=== PATIENT | male | born 1980 | race Caucasian/White ===

== ENCOUNTER 2022-05-05 03:36 | Emergency (ER) | payer SELFPAY ==
--- NOTE | 2022-05-05 04:00 | NUR ---
Patient left without being seen. No further treatment provided. ER MD aware
== END 2022-05-05 04:00 | disposition left against medical advice (07) ==
LOC: SED 03:36
DX: R10.9 Unspecified abdominal pain (principal); Z53.21 Procedure and treatment not carried out due to patient leaving prior to being seen by health care provider

== ENCOUNTER 2022-05-10 21:14 | Inpatient (IN) | payer MEDICAID ==
[~2022-05-10] VITALS: Ht 180.3 cm; Wt 89.4 kg
[2022-05-10] MEDS ORDERED: MORPHINE 2 MG/ML INJ. SYRINGE IVP ONE (22:00)
[2022-05-10] MEDS ORDERED: NACL 0.9% 1,000 ML IV ONE (22:00)
[2022-05-10] MEDS ORDERED: ONDANSETRON HCL 4 MG/2 ML VIAL IVP ONE (22:00)
[2022-05-10] MEDS ORDERED: iohexoL 350 mgI/mL, 100 ML INFUS..BTL IV ONE (22:19)
[2022-05-10 22:36] LABS: BASOPHILS % (AUTO) 0.7 % (0.0-2.0); EOSINOPHILS # (AUTO) 0.1 K/uL (0.0-0.4); EOSINOPHILS % (AUTO) 1.4 % (0.0-4.0); HEMATOCRIT 43.7 % (36-54); LYMPHOCYTES # (AUTO) 1.6 K/uL (1.0-5.5); LYMPHOCYTES % (AUTO) 26.7 % (20.5-51.5); MEAN CORPUSCULAR HEMOGLOBIN 32 pg (27-31); MEAN CORPUSCULAR HGB CONC 34 % (32-36); MEAN CORPUSCULAR VOLUME 94 fL (79.0-98.0); MONOCYTES # (AUTO) 0.5 K/uL (0.0-1.0); MONOCYTES % (AUTO) 7.7 % (1.7-9.3); NEUTROPHILS # (AUTO) 3.8 K/uL (1.8-7.7); NEUTROPHILS % (AUTO) 63.5 % (40.0-70.0); PLATELET COUNT (AUTO) 227 K/uL (130-430); RED BLOOD CELL COUNT(AUTO) 4.65 MIL/uL (4.2-6.2); RED CELL DISTRIBUTION WIDTH 12.7 % (9.0-15.0); WHITE BLOOD COUNT (AUTO) 5.9 K/uL (4.8-10.8)
[2022-05-10 22:49] LABS: CALCIUM 9.9 mg/dL (8.4-11.0); CREATININE 1.09 mg/dL (0.55-1.30); POTASSIUM 3.7 mmol/L (3.5-5.1); TOTAL BILIRUBIN 2.5 mg/dL (0.0-1.0)
[2022-05-10 22:50] LABS: BILIRUBIN,URINE 2+ (NEGATIVE); COLOR,URINE ORANGE (YELLOW); GLUCOSE,URINE NEGATIVE (NEGATIVE); KETONES,URINE NEGATIVE (NEGATIVE); LEUKOCYTE ESTERASE ,URINE NEGATIVE (NEGATIVE); NITRITE, URINE NEGATIVE (NEGATIVE); PROTEIN URINE 1+ (NEGATIVE)
[2022-05-10 22:52] LABS: BLOOD, URINE TRACE (NEGATIVE)
[2022-05-10 22:53] LABS: CLARITY/URINE SLIGHTLY HAZY (CLEAR)
[2022-05-10 23:03] LABS: BACTERIA,URINE MODERATE /HPF (None Seen); RBC,URINE 0-3 /HPF (0-3); WBC,URINE 0-3 /HPF (0-3)
[2022-05-10 23:04] LABS: COARSE GRANULAR CASTS,URINE 0-10 /LPF (None Seen); MUCUS,URINE 2+ /LPF (None Seen)
[2022-05-10] MEDS ORDERED: cefTRIAXone 1 GM in D5W 50 ML IV ONE (23:15)
[2022-05-11] VITALS (7 sets, daily range): BP systolic 106–139
--- NOTE | 2022-05-11 02:13 | NUR ---
Placed in room 7 . Placed on monitor technician, blood pressure machine and pulse oximeter. To gown for exam. Side rails up. PT A&O X4, VERBAL, AMBULATORY, WITH C/O RUQ PAIN, NO SOB/ DISTRESS, PT STATED THAT HE WAS D/C FROM THE HOSPITAL LAST . & MD'S IN THE HOSPITAL WAS TELLING HIM HE HAS GALLSTONE BUT WAS D/C HOME.
[2022-05-11] MEDS ORDERED: MORPHINE 2 MG/ML INJ. SYRINGE ONE (02:53)
[2022-05-11] MEDS ORDERED: ONDANSETRON HCL 4 MG/2 ML VIAL ONE (02:54)
[2022-05-11] MEDS ORDERED: cefTRIAXone 1 GM VIAL ONE (02:55)
[2022-05-11] MEDS ORDERED: HYDROcodone/ACETAMIN 10-325 MG TAB PO PRN ×2 (03:00→11:00)
[2022-05-11] MEDS ORDERED: HYDROcodone/ACETAMIN 5-325 MG TAB (NORCO/ VICODIN) PO PRN ×2 (03:00→11:00)
--- NOTE | 2022-05-11 05:51 | NUR ---
GAVE REPORT TO BRUNO/DANNY ON THE PHONE.
--- NOTE | 2022-05-11 05:54 | NUR ---
Consultation Paged Reason for Consultation: Bile Duct Obstruction Was consult called: Y Person who was notified: Sol Consulting Physician: Dr. 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
--- NOTE | 2022-05-11 05:57 | NUR ---
TRANSFER PT TO RM 129B VIA W/C, PT A&O X4, VERBAL, AMBULATORY, NO SOB/ DISTRESS, NO C/O PAIN AT THIS TIME. IV PERIPHERAL LINE INTACT ON THE RT FA, FROILAN.
--- NOTE | 2022-05-11 06:03 | NUR ---
Consultation Paged Reason for Consultation: Bile Duct Obstruction Was consult called: Y Person who was notified: [place] Consulting Physician: Yoshi Bhatti Ordering Physician: Josiah Dobbins
[2022-05-11] MEDS ORDERED: NALOXONE HCL 0.4 MG/ML AMP (NARCAN) IVP PRN ×2 (11:00)
[2022-05-11] MEDS ORDERED: LORazepam 2 MG/ML VIAL IVP PRN (11:00)
[2022-05-11] MEDS ORDERED: ACETAMINOPHEN 325 MG TABLET PO PRN (11:00)
[2022-05-11] MEDS ORDERED: ONDANSETRON HCL 4 MG/2 ML VIAL IVP PRN (11:00)
--- NOTE | 2022-05-11 19:30 | NUR ---
Opening note Received report from day shift. Pt is awake resting in bed, a/o x4. Breathing even and unlabored on RA. IV site intact and patent saline lock. Fall and safety precautions in place with bed in lowest position and call light within reach
[2022-05-11] MEDS: cefTRIAXone 1 GM IVPB PREMIX 50 ML IV SCH (20:55)
[2022-05-11 23:48] LABS: BARBITURATE, URINE NEGATIVE (NEG <=200); BENZODIAZEPINE, URINE NEGATIVE (NEG <=150); CANNABINOID, URINE POSITIVE (NEG <=50); COCAINE, URINE NEGATIVE (NEG <=150); METHAMPHETAMINES SCREEN,URINE NEGATIVE (NEG <=500); OPIATE, URINE POSITIVE (NEG <=100); PHENCYCLIDINE SCREEN,URINE NEGATIVE (NEG <=25); UR TRICYCLIC ANTIDEPRESSANTS NEGATIVE (NEG <=300); URINE AMPHETAMINE NEGATIVE (NEG <=500); URINE METHADONE NEGATIVE (NEG <=200); URINE OXYCODONE SCREEN NEGATIVE (NEG <=100); URINE PROPOXYPHENE SCREEN NEGATIVE (NEG <=300)
[2022-05-12] VITALS: BP_SYST 108
--- NOTE | 2022-05-12 | NUR ---
Pt now NPO for MRCP in the AM
--- NOTE | 2022-05-12 02:27 | NUR ---
Rounds Pt lying in bed, eyes closed. Breathing even and unlabored. No s/s of acute distress
[2022-05-12 06:44] LABS: BASOPHILS % (AUTO) 0.7 % (0.0-2.0); EOSINOPHILS # (AUTO) 0.1 K/uL (0.0-0.4); EOSINOPHILS % (AUTO) 4.1 % (0.0-4.0); HEMATOCRIT 41.6 % (36-54); HEMOGLOBIN 14.2 g/dL (14.0-18.0); LYMPHOCYTES # (AUTO) 1.6 K/uL (1.0-5.5); LYMPHOCYTES % (AUTO) 46.4 % (20.5-51.5); MEAN CORPUSCULAR HEMOGLOBIN 32 pg (27-31); MEAN CORPUSCULAR HGB CONC 34 % (32-36); MEAN CORPUSCULAR VOLUME 95 fL (79.0-98.0); MONOCYTES # (AUTO) 0.3 K/uL (0.0-1.0); MONOCYTES % (AUTO) 8.5 % (1.7-9.3); NEUTROPHILS # (AUTO) 1.4 K/uL (1.8-7.7); NEUTROPHILS % (AUTO) 40.3 % (40.0-70.0); PLATELET COUNT (AUTO) 205 K/uL (130-430); RED CELL DISTRIBUTION WIDTH 12.9 % (9.0-15.0); WHITE BLOOD COUNT (AUTO) 3.5 K/uL (4.8-10.8)
--- NOTE | 2022-05-12 07:06 | NUR ---
Closing note Pt is lying in bed, eyes closed. Breathing even and unlabored on RA. IV site intact and patent saline lock. Remains NPO for MRCP today. Fall and safety precautions in place with bed in lowest position and call light within reach. All needs met throughout shift.
[2022-05-12 08:00] VITALS: BP_SYST 130
[2022-05-12 09:36] LABS: ALANINE AMINOTRANSFERASE 774 U/L (12-78); ALBUMIN 3.3 g/dL (3.4-4.8); ANION GAP 7 (5-15); ASPARTATE AMINOTRANSFERASE 283 U/L (10-37); CALCIUM 8.6 mg/dL (8.4-11.0); CHLORIDE 107 mmol/L (98-107); CREATININE 1.05 mg/dL (0.55-1.30); GLUCOSE 91 mg/dL (70-99); SODIUM SERUM 144 mmol/L (136-145); TOTAL BILIRUBIN 1.4 mg/dL (0.0-1.0); UREA NITROGEN, BLOOD 11 mg/dL (8-21)
[2022-05-12 09:53] LABS: GFR AFRICAN AMERICAN 100 mL/min (>90)
[2022-05-12 10:25] LABS: C-REACTIVE PROTEIN QUANT < 0.2 mg/dL (0-0.5)
[2022-05-12] MEDS ORDERED: LORazepam 2 MG/ML VIAL IVP PRN (12:30)
[2022-05-12] MEDS ORDERED: ACETAMINOPHEN 325 MG TABLET PO PRN (12:30)
[2022-05-12] MEDS ORDERED: NALOXONE HCL 0.4 MG/ML AMP (NARCAN) IVP PRN ×2 (12:30)
[2022-05-12] MEDS ORDERED: HYDROcodone/ACETAMIN 5-325 MG TAB (NORCO/ VICODIN) PO PRN (12:30)
[2022-05-12] MEDS ORDERED: ONDANSETRON HCL 4 MG/2 ML VIAL IVP PRN (12:30)
[2022-05-12] MEDS ORDERED: HYDROcodone/ACETAMIN 10-325 MG TAB PO PRN (12:30)
[2022-05-12 12:45] LABS: ERYTHROCYTE SEDIMENTATION RATE 6 MM/HR (0-15)
[2022-05-12 16:00] VITALS: BP_SYST 158
[2022-05-12] MEDS: cefTRIAXone 1 GM IVPB PREMIX 50 ML IV SCH (22:23)
[2022-05-13 07:37] LABS: ALBUMIN 3.2 g/dL (3.4-4.8); BASOPHILS % (AUTO) 0.4 % (0.0-2.0); CALCIUM 8.7 mg/dL (8.4-11.0); CREATININE 0.97 mg/dL (0.55-1.30); EOSINOPHILS # (AUTO) 0.1 K/uL (0.0-0.4); EOSINOPHILS % (AUTO) 2.8 % (0.0-4.0); HEMATOCRIT 41.5 % (36-54); HEMOGLOBIN 14.2 g/dL (14.0-18.0); LYMPHOCYTES # (AUTO) 1.8 K/uL (1.0-5.5); LYMPHOCYTES % (AUTO) 43.7 % (20.5-51.5); MEAN CORPUSCULAR HEMOGLOBIN 32 pg (27-31); MEAN CORPUSCULAR HGB CONC 34 % (32-36); MEAN CORPUSCULAR VOLUME 95 fL (79.0-98.0); MONOCYTES # (AUTO) 0.3 K/uL (0.0-1.0); MONOCYTES % (AUTO) 7.2 % (1.7-9.3); NEUTROPHILS # (AUTO) 1.9 K/uL (1.8-7.7); NEUTROPHILS % (AUTO) 45.9 % (40.0-70.0); PLATELET COUNT (AUTO) 225 K/uL (130-430); POTASSIUM 3.7 mmol/L (3.5-5.1); RED CELL DISTRIBUTION WIDTH 12.7 % (9.0-15.0); TOTAL BILIRUBIN 0.8 mg/dL (0.0-1.0)
[2022-05-13 09:07] LABS: HEPATITIS A AB, IgM Negative (Negative); HEPATITIS B CORE AB, IgM Negative (Negative); HEPATITIS B SURFACE AG Negative (Negative)
[2022-05-13] MEDS ORDERED: NS IRRIG SOLN 1000 ML IR ONE (14:09)
[2022-05-13] MEDS ORDERED: DEXAMETHASONE SOD PHOSPHATE 4 MG/ML VIAL ONE (14:09)
[2022-05-13] MEDS ORDERED: BUPIVACAINE /EPINEPHRINE/PF 0.5% 30 ML VIAL INJ ONE (14:09)
[2022-05-13] MEDS ORDERED: GLYCOPYRROLATE 0.2 MG/ML VIAL ONE (14:09)
[2022-05-13] MEDS ORDERED: PROPOFOL 200MG/ 20ML VIAL (DIPRIVAN) IV ONE (14:09)
[2022-05-13] MEDS ORDERED: CEFAZOLIN 2 GM IVPB PREMIX 50 ML IV ONE (14:09)
[2022-05-13] MEDS ORDERED: ePHEDrine sulfate 50 MG/ML VIAL ONE (14:09)
[2022-05-13] MEDS ORDERED: ROCURONIUM BROMIDE 10 MG/ML (ZEMURON) ONE (14:09)
[2022-05-13] MEDS ORDERED: ONDANSETRON HCL 4 MG/2 ML VIAL ONE (14:09)
[2022-05-13] MEDS ORDERED: KETOROLAC TROMETHAMINE 30 MG VIAL ONE (14:09)
[2022-05-13] MEDS ORDERED: SEVOFLURANE 15 MIN GAS INH ONE (14:09)
[2022-05-13] MEDS ORDERED: NS 1000 ML IV.SOLN IV ONE (14:09)
[2022-05-13] MEDS ORDERED: METOCLOPRAMIDE HCL 10 MG/2 ML VIAL ONE (14:09)
[2022-05-13] MEDS ORDERED: MIDAZOLAM HCL 2 MG/2 ML VIAL (VERSED) ONE (14:09)
[2022-05-13] MEDS ORDERED: SUCCINYLCHOLINE CHLORIDE 20 MG/ML(QUELICIN) ONE (14:09)
[2022-05-13] MEDS ORDERED: PHENYLEPHRINE HCL 10 MG/ML VIAL (NEOSYNEPHRINE) ONE (14:09)
[2022-05-13] MEDS ORDERED: LIDOCAINE 1% 10 MG/ML, 20 ML MDV ONE (14:09)
[2022-05-13] MEDS ORDERED: fentaNYL CITRATE/PF 100 MCG/2 ML AMP ONE ×2 (14:09)
[2022-05-13] MEDS ORDERED: ONDANSETRON HCL 4 MG/2 ML VIAL IVP PRN ×2 (15:45→16:30)
[2022-05-13] MEDS ORDERED: fentaNYL CITRATE/PF 100 MCG/2 ML AMP IVP PRN ×2 (16:30)
[2022-05-13] MEDS ORDERED: METOCLOPRAMIDE HCL 10 MG/2 ML VIAL IVP PRN (16:30)
[2022-05-13 16:41] VITALS: BP_SYST 121
[2022-05-13 17:00] VITALS: BP_SYST 112
[2022-05-13] MEDS: MORPHINE 4 MG INJ. 4 MG/ML VIAL IVP PRN ×2 (21:55→23:46)
[2022-05-13] MEDS: cefTRIAXone 1 GM IVPB PREMIX 50 ML IV SCH (21:56)
[2022-05-13 22:30] VITALS: BP_SYST 127
[2022-05-14] MEDS: MORPHINE 4 MG INJ. 4 MG/ML VIAL IVP PRN (03:50)
[2022-05-14 08:00] VITALS: BP_SYST 126
[2022-05-14] MEDS ORDERED: HYDR-3919 PO (11:00)
[2022-05-14 11:30] VITALS: BP_SYST 145
--- NOTE | 2022-05-14 11:40 | NUR ---
a/oX4,AFBRILE,VSS,PT AMBULATORY WELL.NO C/O PAIN OR DISCOMFORT,D/C HOME PER DR ORDER 3 LAP SITES IN RIGHT ABDOMEN WITH DERMABANDS CLEAN AND DRY,SITE CLEANED AND OPEN TO AIR D/C IV,D/C INSTRUCTION GIVEN AND EXPLAINED,PT LEAVING WITH FRIEND
== END 2022-05-14 17:28 | disposition home or self-care (01) | DRG 263 ==
LOC: SED 21:14 → SMU 05-11 02:46
PROVIDERS: ADMIT Preventive Medicine Preventive Medicine/Occupational Environmental Medicine; ATTEND Preventive Medicine Preventive Medicine/Occupational Environmental Medicine
PROC: BF121ZZ Fluoroscopy of Gallbladder using Low Osmolar Contrast (ICD-10-PCS; 2022-05-13)
PROC: 0FT44ZZ Resection of Gallbladder, Percutaneous Endoscopic Approach (ICD-10-PCS; principal; 2022-05-13 14:09)
DX: K85.10 Biliary acute pancreatitis without necrosis or infection (principal); E88.09 Other disorders of plasma-protein metabolism, not elsewhere classified; K80.70 Calculus of gallbladder and bile duct without cholecystitis without obstruction; K80.80 Other cholelithiasis without obstruction; R73.9 Hyperglycemia, unspecified; R74.01 Elevation of levels of liver transaminase levels; F12.10 Cannabis abuse, uncomplicated; D72.819 Decreased white blood cell count, unspecified; Z20.822 Contact with and (suspected) exposure to COVID-19
CPT/HCPCS: 36415; 74181; 76000; 76376; 76705; 80053; 80074; 80307; 81000; 83690; 85025; 85651-TC; 86140; 87086; 88304; 96374; 96375; 99291; C1727; G0482; J0330; J0690; J0696; J1100; J1885; J2001; J2270; J2370; J2405; J2704; J2765; J3010; J3465; J3490; J7030; Q9967